=== PATIENT | female | born 1955 | race Caucasian/White ===

== ENCOUNTER 2021-06-20 07:24 | Day surgery (SDC) | payer OTHER ==
[~2021-06-20] VITALS: Ht 157.5 cm; Wt 63.2 kg
[~2021-06-20 07:24] MED LIST: SODIUM CHLORIDE 0.9% 1,000 ML IV ONE; SODIUM CHLORIDE 0.9% 1,000 ML ONE
[2021-06-20] MEDS ORDERED: DiphenhydrAMINE HCL 50 MG CAPSULE ONE (08:07)
[2021-06-20] MEDS ORDERED: ASPIRIN 81 MG CHEWABLE TABLET ONE (08:07)
[2021-06-20] MEDS ORDERED: DIAZEPAM 5 MG TABLET ONE (08:07)
[2021-06-20] MEDS ORDERED: IOHEXOL 300 MG/ML 100 ML VIAL ONE (08:22)
[2021-06-20] MEDS ORDERED: LIDOCAINE/PF 1% 30 ML VIAL ONE (08:22)
[2021-06-20] MEDS ORDERED: IOHEXOL 300 MG/ML 50 ML VIAL ONE (08:22)
[2021-06-20] MEDS ORDERED: HEPARIN SODIUM 1000 UNITS/NS 500 ML ONE (08:22)
[2021-06-20] MEDS ORDERED: IOHEXOL 300 MG/ML 150 ML VIAL ONE (08:22)
[2021-06-20] MEDS ORDERED: SODIUM BICARBONATE 50 MEQ/50 ML VIAL ONE (08:22)
[2021-06-20 08:47] LABS: GLUCOMETER DEV NAME(LOC) SDS.; GLUCOSE,POINT OF CARE 212 MG/DL (70-110)
[2021-06-20 08:49] VITALS: BP 100/51
[2021-06-20] MEDS ORDERED: MIDAZOLAM HCL 2 MG/2 ML VIAL ONE (08:59)
[2021-06-20] MEDS ORDERED: FentaNYL CITRATE PF 100 MCG/2 ML VIAL ONE (08:59)
[2021-06-20] MEDS ORDERED: ASPIRIN 81 MG CHEWABLE TABLET PO ONE (09:00)
[2021-06-20] MEDS ORDERED: DIAZEPAM 5 MG TABLET PO ONE (09:00)
[2021-06-20] MEDS ORDERED: DiphenhydrAMINE HCL 50 MG CAPSULE PO ONE (09:00)
[2021-06-20] MEDS ORDERED: SODIUM CHLORIDE 0.9% 250 ML IV ONE (09:15)
[2021-06-20] MEDS ORDERED: HEPARIN SODIUM 1000 UNITS/NS 1,000 ML IARTER ONE (09:15)
[2021-06-20] MEDS ORDERED: HEPARIN SODIUM,PORCINE 5,000 UNITS/ML VIAL IVP ONE ×2 (09:15→10:00)
[2021-06-20] MEDS ORDERED: MIDAZOLAM HCL 2 MG/2 ML VIAL IVP ONE (09:15)
[2021-06-20] MEDS ORDERED: LIDOCAINE 1% 30 ML/SOD BICARB 8.4% 4 ML SQ ONE (09:15)
[2021-06-20] MEDS ORDERED: FentaNYL CITRATE PF 100 MCG/2 ML VIAL IVP ONE (09:15)
[2021-06-20] MEDS ORDERED: IOHEXOL 300 MG/ML 150 ML VIAL IARTER ONE (09:15)
[2021-06-20] MEDS ORDERED: ASPIRIN 325 MG TABLET ONE (09:18)
[2021-06-20] MEDS ORDERED: TICAGRELOR 90 MG TABLET ONE (09:18)
[2021-06-20] MEDS ORDERED: CLOPIDOGREL BISULFATE 300 MG TABLET PO ONE (09:30)
[2021-06-20] MEDS ORDERED: CLOPIDOGREL BISULFATE 300 MG TABLET ONE (09:44)
[2021-06-20 09:59] VITALS: BP 103/49
[2021-06-20] MEDS ORDERED: SODIUM CHLORIDE 0.9% 500 ML IV SCH (10:15)
== END 2021-06-20 20:10 | disposition home or self-care (01) ==
LOC: CATHLAB 07:24
PROVIDERS: ATTEND Internal Medicine Interventional Cardiology
DX: R94.39 Abnormal result of other cardiovascular function study (principal); I25.110 Atherosclerotic heart disease of native coronary artery with unstable angina pectoris; E11.22 Type 2 diabetes mellitus with diabetic chronic kidney disease; I12.9 Hypertensive chronic kidney disease with stage 1 through stage 4 chronic kidney disease, or unspecified chronic kidney disease; N18.30 Chronic kidney disease, stage 3 unspecified; I42.9 Cardiomyopathy, unspecified; E11.51 Type 2 diabetes mellitus with diabetic peripheral angiopathy without gangrene; E78.5 Hyperlipidemia, unspecified; Z98.890 Other specified postprocedural states; Z98.41 Cataract extraction status, right eye; Z79.899 Other long term (current) drug therapy; Z98.42 Cataract extraction status, left eye; Z79.82 Long term (current) use of aspirin; Z79.01 Long term (current) use of anticoagulants; Z79.84 Long term (current) use of oral hypoglycemic drugs
CPT/HCPCS: 82962; 93005; 93458; 99152; 99153; C1760; C1874; C1887; C9600; J1644; J2250; J3010; J3490 ×2; J7030; Q9967 ×3; 92920; 92928